=== PATIENT | female | born 1935 | race Caucasian/White ===

== ENCOUNTER 2020-05-14 20:04 | Emergency (ER) | payer MEDICARE ==
[~2020-05-14] VITALS: Ht 154.9 cm; Wt 85.0 kg
[2020-05-14] MEDS ORDERED: acetaminophen 325mg tablet PO ONE (21:20)
--- NOTE | 2020-05-14 21:34 | NUR ---
Pt to xray via w/c
--- NOTE | 2020-05-14 21:38 | NUR ---
Pt returned from xray.
[2020-05-14] MEDS ORDERED: CYCL-1 PO (21:41)
[2020-05-14] MEDS ORDERED: ACET-1025 PO (21:41)
[2020-05-14 22:01] VITALS: BP 160/76
== END 2020-05-14 22:03 | disposition home or self-care (01) ==
LOC: ER 20:04
DX: M54.5 Low back pain (principal); M25.551 Pain in right hip; Z79.899 Other long term (current) drug therapy
CPT/HCPCS: 73502; 99283